=== PATIENT | male | born 1975 | race African-American/Black ===

== ENCOUNTER 2024-10-20 13:22 | Emergency (ER) | payer SELFPAY ==
[2024-10-20 13:24] VITALS: BP 150/96
--- NOTE | 2024-10-20 16:17 | ED.GENMED ---
History of Present Illness
General
Chief Complaint: Crisis Evaluation
Time Seen by Provider: 10/20/24 13:59
History of Present Illness
History of Present Illness:
49-year-old male presents to the emergency department for evaluation of suicidal ideation. He is a resident at [facility], while being in waited for medication adjustments by his nurse practitioner he indicated to his
provider that he had suicidal intent with a plan to cut his wrists. He also indicated some homicidal intent. On arrival to the ED he denies this and states he 'just lied to the nurse practitioner'. He refuses to provide further details at this
time
Review of Systems
Review of Systems
Allergies reviewed?: Yes
All Other Systems: ROS reviewed and negative except as documented in HPI and ROS
Phy Exam
Physical Exam
Physical Exam:
GEN: Well appearing, NAD, WDWN
HEENT: Oral mucosa moist, no scleral icterus
Cardiac: Regular rate
Lung: No respiratory distress, no tachypnea
MSK: No gross deformity or injuries
Skin: Good color, no pallor or jaundice, no rashes
Neuro: AO x3, moves all extremities freely
Psych: Withdrawn, does not make eye contact, refuses to cooperate or participate
Course
Orders/Labs/Results
Orders:
Orders
10/20/24 14:43
Crisis Consult Urgent
Reason for Consult: SI
Vital Signs
Initial and Last Documented VS:
Initial Vital Signs
Temp Pulse Resp BP Pulse Ox
98.4 F 69 16 150/96 96
10/20/24 13:24 10/20/24 13:24 10/20/24 13:24 10/20/24 13:24 10/20/24 13:24
Last Documented Vital Signs
Temp Pulse Resp BP Pulse Ox
98.4 F 69 16 150/96 96
10/20/24 13:24 10/20/24 13:24 10/20/24 13:24 10/20/24 13:24 10/20/24 13:24
MDM/Problems Addressed
MDM/Problems Addressed:
Based on report from patient's outside practitioner he indicated suicidal intent with the plan. 302 petitioned by nurse practitioner and upheld by ED team as well as telepsych consultation. Will remain in ED pending placement
*Critical Care Note
Total Time (30-74mins, 75-104mins- exclusive of procedures): Not Applicable
ED Attending Note
-
Portions of this chart may have been created with voice recognition software.� Occasional wrong word or��sound alike� substitutions may have occurred due to the inherent limitations of voice recognition software.
Discharge Plan
Departure
Patient Disposition: Psych Facility
Date of Disposition: 10/20/24
Time of Disposition: 19:10
Discharge Problem:
Suicidal ideation
Prescriptions:
No Action
metformin 500 mg Tablet
1,000 mg PO BID
atorvastatin [Lipitor] 80 mg Tablet
80 mg PO QPM
benztropine 0.5 mg Tablet
0.5 mg PO BID
cetirizine 10 mg Tablet
10 mg PO DAILY
sertraline 100 mg Tablet
150 mg PO DAILY
sodium chloride 1 gram Tablet
1,000 mg PO DAILY
oxcarbazepine 300 mg Tablet
300 mg PO BID
clopidogrel [Plavix] 75 mg Tablet
75 mg PO DAILY
famotidine [Pepcid] 20 mg Tablet
20 mg PO BID
haloperidol 20 mg Tablet
20 mg PO BID
lisinopril 30 mg Tablet
30 mg PO DAILY
metoprolol succinate [Toprol XL] 25 mg Tablet Extended Release 24 Hr
25 mg PO DAILY
ergocalciferol (vitamin D2) 1,250 mcg (50,000 unit) Capsule
1,250 mcg PO WE
fluticasone propionate [Flonase] 50 mcg/actuation [place],Suspension
2 spray INTRANASAL DAILY
aripiprazole 30 mg Tablet
30 mg PO HS
Ingrezza 40 mg Capsule
40 mg PO DAILY
Interventions
Interventions:
*Risk Screen - Suicide Last Done: 10/20/24 15:01
*General Assessment Last Done: 10/20/24 15:13
*Neglect/Abuse Screening Last Done: 10/20/24 15:01
*ED- Fall Risk Assessment Last Done: 10/20/24 15:13
*ED COVID-19 Vaccine History Last Done: 10/20/24 15:13
ED-Psychological Assessment Last Done: 10/20/24 15:13
Discharge Date and Time
Print Language: UKRAINIAN
[2024-10-20 19:31] LABS: % Basophils 0.3 % (0-2); % Eosinophils 4.8 % (0-6); % Lymphocytes 42.5 % (20.5-51.1); % Monocytes 8.5 % (1.7-9.3); % Neutrophils 43.9 % (42.2-75.2); Absolute Eosinophils 0.2 10^3/uL (0-0.7); Absolute Lymphocytes 1.5 10^3/uL (1.2-3.4); Absolute Monocytes 0.3 10^3/uL (0.1-0.6); Absolute Neutrophils 1.6 10^3/uL (1.4-6.5); Hematocrit 31.9 % (39.0-52.0); Hemoglobin 11.8 g/dL (13.0-18.0); Mean Corpuscular Hgb 32.8 pg (27.0-31.0); Mean Corpuscular Volume 88.6 fL (80.0-94.0); Mean Platelet Volume 10.2 fL (7.4-10.4); Nucleated Red Blood Cells % 0 % (-); Platelet Count 159 10^3/uL (130-400); Red Cell Dist. Width 12.4 % (11.5-14.5); White Blood Cell Count 3.5 10^3/uL (4.8-10.8)
[2024-10-20] MEDS: PEPCID 20 MG PO (19:56)
[2024-10-20] MEDS: GLUCOPHAGE 1000 MG PO (19:56)
[2024-10-20] MEDS: HALDOL 20 MG PO (19:56)
[2024-10-20] MEDS: COGENTIN 0.5 MG PO (19:56)
[2024-10-20] MEDS: LIPITOR 80 MG PO (19:56)
[2024-10-20] MEDS: TRILEPTAL 300 MG PO (19:57)
[2024-10-20 20:00] LABS: ALT (SGPT) 17 U/L (0-50); AST (SGOT) 19 U/L (17-59); Albumin 3.9 g/dl (3.5-5.0); Alkaline Phosphatase 88 U/L (38-126); Blood Urea Nitrogen 10 mg/dl (9-20); Calcium 9.1 mg/dl (8.4-10.2); Carbon Dioxide 24 mmol/L (22-30); Chloride 95 mmol/L (98-107); Glucose 120 mg/dl (70-99); Potassium 3.7 mmol/L (3.5-5.1); Sodium 126 mmol/L (135-145); Total Bilirubin 0.4 mg/dl (0.2-1.3); Total Protein 6.1 g/dl (6.3-8.2); eGFR > 60.00
[2024-10-20] MEDS: ABILIFY 30 MG PO (23:11)
[2024-10-20 23:14] VITALS: BP 138/83
== END 2024-10-21 02:17 ==
LOC: EMR 13:22
PROVIDERS: Physician Assistant; EMERGENCY PHYSICIAN Emergency Medicine
DX: R45.851 Suicidal ideations (principal); F25.9 Schizoaffective disorder, unspecified; Z79.899 Other long term (current) drug therapy; Z88.6 Allergy status to analgesic agent
CPT/HCPCS: 99283; 80053; 85025